=== PATIENT | female | born 1970 | race African-American/Black ===

== ENCOUNTER 2019-03-14 21:10 | Emergency (ER) | payer MEDICAID ==
[~2019-03-14] VITALS: Ht 162.6 cm; Wt 57.0 kg
[~2019-03-14 21:10] MED LIST: ACET-2178; CEPH500C2 PO; FURO-152
[2019-03-15 00:08] LABS: CHLORIDE 114 mEq/L (98-107)
[2019-03-15 00:12] LABS: BASOPHILS % 0.5 % (0.0-2.0); ETHANOL BLOOD < 10 mg/dL; HEMATOCRIT. 29.9 % (36.0-48.0); LYMPHOCYTES % 18.4 % (20.0-50.0); MEAN CORPUSCULAR HEMOGLOBIN 31.2 pg (28.0-32.0); MEAN CORPUSCULAR VOLUME 93.4 fL (81.0-99.0); MEAN PLATELET VOLUME 9.5 fl (7.4-10.4); MONOCYTES % 13.2 % (2.0-8.0); NEUTROPHILS % 63.9 % (40.0-76.0); PLATELET 160 x1000/uL (130-400); RED BLOOD CELL COUNT 3.21 mill/uL (4.2-5.4); RED CELL DISTRIBUTION WIDTH 14.4 % (11.6-14.6)
[2019-03-15] MEDS ORDERED: ACETAMINOPHEN 650MG/20.3ML UDC PO ONE (01:00)
[2019-03-16 10:19] VITALS: BP 123/95
== END 2019-03-16 12:01 | disposition home or self-care (01) ==
LOC: ER 21:10 → EDBEDREQ 03-16 11:23 → ER 03-16 12:01 → CANBEDREQ 03-16 12:16
DX: F99 Mental disorder, not otherwise specified (principal); G93.1 Anoxic brain damage, not elsewhere classified; I25.2 Old myocardial infarction; I50.9 Heart failure, unspecified; J45.909 Unspecified asthma, uncomplicated; Z86.74 Personal history of sudden cardiac arrest
CPT/HCPCS: 36415; 80320; 81025; 83880; 84484; 93005; 99284; G0480

== ENCOUNTER 2019-03-20 11:28 | Inpatient (IN) | payer MEDICAID ==
[~2019-03-20] VITALS: Ht 167.6 cm; Wt 45.4 kg
[2019-03-20 12:36] LABS: BASOPHILS % 0.8 % (0.0-2.0); EOSINOPHILS % 4.5 % (0.0-5.0); HEMATOCRIT. 34.6 % (36.0-48.0); HEMOGLOBIN. 11.7 g/dL (12.0-16.0); LYMPHOCYTES % 20.4 % (20.0-50.0); MEAN CORPUSCULAR HEMOGLOBIN 31.6 pg (28.0-32.0); MEAN CORPUSCULAR VOLUME 93.2 fL (81.0-99.0); MEAN PLATELET VOLUME 9.6 fl (7.4-10.4); NEUTROPHILS % 65.3 % (40.0-76.0); PLATELET 198 x1000/uL (130-400); RED BLOOD CELL COUNT 3.71 mill/uL (4.2-5.4); RED CELL DISTRIBUTION WIDTH 14.4 % (11.6-14.6)
[2019-03-20 12:41] LABS: CHLORIDE 107 mEq/L (98-107)
[2019-03-20 12:45] LABS: ETHANOL BLOOD < 10 mg/dL
[2019-03-20 12:51] LABS: INR 1.2; PARTIAL THROMBOPLASTIN TIME 27.3 sec (23.4-31.0); PROTHROMBIN TIME 12.7 sec (9.6-11.0)
[2019-03-20 14:15] LABS: CLARITY URINE CLOUDY (CLEAR); COLOR URINE YELLOW (YELLOW); KETONES URINE NEGATIVE (NEGATIVE); LEUKOCYTE ESTERASE URINE 2+ (NEGATIVE); NITRITE URINE NEGATIVE (NEGATIVE); OCCULT BLOOD URINE TRACE (NEGATIVE); PROTEIN URINE TRACE (NEGATIVE); SPECIFIC GRAVITY URINE 1.022 (1.005-1.030)
[2019-03-20] MEDS ORDERED: ONDANSETRON HCL 4MG/2ML INJ IV PRN (14:30)
[2019-03-20] MEDS ORDERED: GUAIFENESIN 200MG/10ML SUGAR FREE UDC PO PRN (14:30)
[2019-03-20] MEDS ORDERED: IPRATROPIUM/ALBUTEROL 0.5-3(2.5)MG/3ML NEB INH PRN (14:30)
[2019-03-20] MEDS ORDERED: CLONIDINE 0.1MG TABLET PO PRN (14:30)
[2019-03-20] MEDS ORDERED: DOCUSATE SODIUM 100MG CAPSULE PO PRN (14:30)
[2019-03-20] MEDS ORDERED: ACETAMINOPHEN 325MG TABLET PO PRN (14:30)
[2019-03-20] MEDS ORDERED: MAGNESIUM/ALUMINUM HYDROXIDE/SIMETHICONE 30ML UDC PO PRN (14:30)
[2019-03-20 14:41] LABS: *AMPHETAMINES SCREEN URINE NEGATIVE (NEGATIVE); *BARBITURATES SCREEN URINE NEGATIVE (NEGATIVE); *BENZODIAZEPINES SCREEN URINE NEGATIVE (NEGATIVE); *COCAINE SCREEN URINE NEGATIVE (NEGATIVE); METHADONE URINE SCREEN NEGATIVE (NEGATIVE); OPIATES URINE SCREEN NEGATIVE (NEGATIVE)
[2019-03-20 14:42] LABS: CANNABINOID URINE SCREEN NEGATIVE (NEGATIVE); PHENCYCLIDINE URINE SCREEN NEGATIVE (NEGATIVE)
[2019-03-20 15:07] LABS: PHOSPHORUS 3.9 mg/dL (2.5-4.9)
[2019-03-20] MEDS ORDERED: CEFTRIAXONE 1 G PREMIX 50 ML IV ONE (15:45)
[2019-03-20 16:45] VITALS: BP 148/80
[2019-03-20 17:00] VITALS: BP 148/80
[2019-03-20] MEDS ORDERED: FOLI-43 MT (17:12)
[2019-03-20] MEDS ORDERED: MULT-1116 MT (17:12)
[2019-03-20] MEDS ORDERED: PHEN50TA2 PO (17:12)
[2019-03-20] MEDS ORDERED: VITA1CAP MT (17:12)
[2019-03-20] MEDS ORDERED: CARV3.1242 MT (17:12)
[2019-03-20] MEDS ORDERED: KEPPSOL MT (17:12)
[2019-03-20] MEDS ORDERED: FERR324T4 MT (17:12)
[2019-03-20] MEDS ORDERED: ATOR40TA70 MT (17:12)
[2019-03-20] MEDS: ENOXAPARIN 40MG/0.4ML SYR SUBCUT SCH (19:37)
[2019-03-20 20:00] VITALS: BP_SYST 126; BP_SYST 99; BP_DIAS 60; BP_DIAS 82
[2019-03-21] VITALS: BP 135/81
[2019-03-21 00:15] LABS: CREATINE KINASE 60 IU/L (26-192); CREATINE KINASE MB FRACTION < 1.0 ng/mL (0.5-3.6)
[2019-03-21 04:00] VITALS: BP 131/81
[2019-03-21 06:36] LABS: BASOPHILS % 0.5 % (0.0-2.0); EOSINOPHILS % 4.7 % (0.0-5.0); HEMATOCRIT. 32.2 % (36.0-48.0); HEMOGLOBIN. 10.7 g/dL (12.0-16.0); LYMPHOCYTES % 21.8 % (20.0-50.0); MEAN CORPUSCULAR HEMOGLOBIN 30.6 pg (28.0-32.0); MEAN PLATELET VOLUME 10.3 fl (7.4-10.4); MONOCYTES % 10.6 % (2.0-8.0); NEUTROPHILS % 62.4 % (40.0-76.0); PLATELET 187 x1000/uL (130-400); RED BLOOD CELL COUNT 3.51 mill/uL (4.2-5.4); RED CELL DISTRIBUTION WIDTH 14.2 % (11.6-14.6)
[2019-03-21 06:42] LABS: CHLORIDE 105 mEq/L (98-107)
[2019-03-21 06:56] LABS: LDL CHOLESTEROL 76 mg/dL (5-100)
[2019-03-21 06:58] LABS: CREATINE KINASE 79 IU/L (26-192)
[2019-03-21 06:59] LABS: HDL CHOLESTEROL 47 mg/dL (40-59)
[2019-03-21 07:02] LABS: CREATINE KINASE MB FRACTION < 1.0 ng/mL (0.5-3.6)
[2019-03-21 08:00] VITALS: BP 131/83
[2019-03-21 12:00] VITALS: BP 134/89
[2019-03-21 16:00] VITALS: BP 132/84
[2019-03-21] MEDS ORDERED: CEFTRIAXONE 1 G PREMIX 50 ML IV SCH (16:00)
[2019-03-21 16:21] LABS: TOTAL IRON BINDING CAPACITY 363 ug/dL (250-450)
[2019-03-21] MEDS ORDERED: LEVE1000 PO (16:29)
[2019-03-21 16:39] LABS: FOLIC ACID (FOLATE) SERUM > 20.00 ng/mL (>5.38)
[2019-03-21 16:40] LABS: VITAMIN B12 SERUM 565 pg/mL (211-911)
[2019-03-21] MEDS ORDERED: LEVETIRACETAM 500MG/5ML CUP PO SCH (17:00)
[2019-03-21] MEDS: LEVETIRACETAM 500MG/5ML CUP PO SCH (17:36)
[2019-03-21] MEDS: ENOXAPARIN 40MG/0.4ML SYR SUBCUT SCH (18:21)
[2019-03-21] MEDS: CEFTRIAXONE 1 G PREMIX 50 ML IV SCH (18:21)
[2019-03-21 20:00] VITALS: BP 119/80
[2019-03-21] MEDS: DIPHENHYDRAMINE 50MG/ML VIAL IV PRN (23:43)
[2019-03-22] VITALS: BP 127/87
[2019-03-22 04:00] VITALS: BP 126/82
[2019-03-22 08:00] VITALS: BP 132/97
[2019-03-22] MEDS: LEVETIRACETAM 500MG/5ML CUP PO SCH ×2 (08:57→22:27)
[2019-03-22 12:00] VITALS: BP 108/82
[2019-03-22] MEDS: LACTULOSE 20G/30ML UDC PO SCH ×2 (13:56→22:27)
[2019-03-22 16:00] VITALS: BP 114/77
[2019-03-22] MEDS: CEFTRIAXONE 1 G PREMIX 50 ML IV SCH (17:28)
[2019-03-22] MEDS: ENOXAPARIN 40MG/0.4ML SYR SUBCUT SCH (17:28)
[2019-03-22] MEDS ORDERED: HALOPERIDOL LACTATE 5MG/ML VIAL IM PRN (18:45)
[2019-03-22 20:00] VITALS: BP 116/83
[2019-03-23] VITALS: BP 104/79
[2019-03-23 04:00] VITALS: BP 115/83
[2019-03-23] MEDS: LACTULOSE 20G/30ML UDC PO SCH ×3 (05:35→21:23)
[2019-03-23 08:00] VITALS: BP 114/82
[2019-03-23 09:28] LABS: BASOPHILS % 0.8 % (0.0-2.0); EOSINOPHILS % 5.3 % (0.0-5.0); HEMATOCRIT. 34.3 % (36.0-48.0); HEMOGLOBIN. 11.4 g/dL (12.0-16.0); LYMPHOCYTES % 18.8 % (20.0-50.0); MEAN CORPUSCULAR HEMOGLOBIN 30.2 pg (28.0-32.0); MEAN CORPUSCULAR VOLUME 91.1 fL (81.0-99.0); MEAN PLATELET VOLUME 9.2 fl (7.4-10.4); MONOCYTES % 10.5 % (2.0-8.0); NEUTROPHILS % 64.6 % (40.0-76.0); PLATELET 202 x1000/uL (130-400); RED BLOOD CELL COUNT 3.77 mill/uL (4.2-5.4); RED CELL DISTRIBUTION WIDTH 14.2 % (11.6-14.6)
[2019-03-23] MEDS: LEVETIRACETAM 500MG/5ML CUP PO SCH ×2 (09:30→21:23)
[2019-03-23 10:09] LABS: CHLORIDE 107 mEq/L (98-107)
[2019-03-23 12:00] VITALS: BP 102/68
[2019-03-23 16:00] VITALS: BP 139/79
[2019-03-23] MEDS: ENOXAPARIN 40MG/0.4ML SYR SUBCUT SCH (18:45)
[2019-03-23] MEDS: CEFTRIAXONE 1 G PREMIX 50 ML IV SCH (18:47)
[2019-03-23 20:00] VITALS: BP 125/89
[2019-03-24] VITALS: BP 123/75
[2019-03-24 04:00] VITALS: BP 151/88
[2019-03-24] MEDS: LACTULOSE 20G/30ML UDC PO SCH ×3 (06:01→22:00)
[2019-03-24 07:21] LABS: BASOPHILS % 0.4 % (0.0-2.0); EOSINOPHILS % 1.2 % (0.0-5.0); HEMATOCRIT. 34.8 % (36.0-48.0); HEMOGLOBIN. 11.7 g/dL (12.0-16.0); LYMPHOCYTES % 11.9 % (20.0-50.0); MEAN CORPUSCULAR HEMOGLOBIN 30.8 pg (28.0-32.0); MEAN CORPUSCULAR VOLUME 91.4 fL (81.0-99.0); MEAN PLATELET VOLUME 9.7 fl (7.4-10.4); MONOCYTES % 6.7 % (2.0-8.0); NEUTROPHILS % 79.8 % (40.0-76.0); PLATELET 210 x1000/uL (130-400); RED CELL DISTRIBUTION WIDTH 14.2 % (11.6-14.6)
[2019-03-24 08:00] VITALS: BP 124/77
[2019-03-24] MEDS: LEVETIRACETAM 500MG/5ML CUP PO SCH ×2 (08:40→22:00)
[2019-03-24 08:44] LABS: CHLORIDE 106 mEq/L (98-107)
[2019-03-24 12:00] VITALS: BP 125/95
[2019-03-24 16:00] VITALS: BP_SYST 106; BP_SYST 126; BP_SYST 132; BP_DIAS 71; BP_DIAS 87; BP_DIAS 90
[2019-03-24] MEDS: ENOXAPARIN 40MG/0.4ML SYR SUBCUT SCH (19:09)
[2019-03-24 20:00] VITALS: BP 120/79
[2019-03-24] MEDS: CEFTRIAXONE 1 G PREMIX 50 ML IV SCH (20:40)
[2019-03-25] VITALS: BP 132/78
[2019-03-25 04:00] VITALS: BP 126/51
[2019-03-25] MEDS: LACTULOSE 20G/30ML UDC PO SCH (06:00)
[2019-03-25 07:17] LABS: BASOPHILS % 0.5 % (0.0-2.0); EOSINOPHILS % 2.8 % (0.0-5.0); HEMATOCRIT. 35.2 % (36.0-48.0); HEMOGLOBIN. 11.7 g/dL (12.0-16.0); LYMPHOCYTES % 19.2 % (20.0-50.0); MEAN CORPUSCULAR HEMOGLOBIN 30.5 pg (28.0-32.0); MEAN CORPUSCULAR VOLUME 91.6 fL (81.0-99.0); MEAN PLATELET VOLUME 10.2 fl (7.4-10.4); MONOCYTES % 11.4 % (2.0-8.0); NEUTROPHILS % 66.1 % (40.0-76.0); PLATELET 211 x1000/uL (130-400); RED BLOOD CELL COUNT 3.85 mill/uL (4.2-5.4); RED CELL DISTRIBUTION WIDTH 14.1 % (11.6-14.6)
[2019-03-25 07:37] LABS: CHLORIDE 108 mEq/L (98-107)
[2019-03-25 08:00] VITALS: BP 115/79
[2019-03-25] MEDS: LEVETIRACETAM 500MG/5ML CUP PO SCH ×2 (08:53→22:00)
[2019-03-25 12:00] VITALS: BP 116/68
[2019-03-25 15:26] LABS: BG BASE EXCESS -0.6 mmol/L (-2.0-2.0); BG CARBOXYHEMOGLOBIN 0.1 % (0.5-1.5); BG DEOXYHEMOGLOBIN 4.1 % (0.0-5.0); BG FRACTION INSPIRED OXYGEN 21; BG HCO3 ACT 23.9 mmol/L (22.0-26.0); BG METHEMOGLOBIN 0.4 % (0.0-1.5); BG OXYGEN SATURATION 95.9 % (92.0-98.5); BG OXYHEMOGLOBIN 95.4 % (94.0-97.0); BG PCO2 38.8 mmHg (35.0-45.0); BG PH 7.407 (7.350-7.450); BG PO2 85.7 mmHg (75.0-100.0); BG SAMPLE SITE RIGHT BRACHIAL; BG TOTAL HEMOGLOBIN 11.6 g/dL (12.0-18.0); BG VENT MODE ROOM AIR
[2019-03-25 16:00] VITALS: BP 117/78
[2019-03-25] MEDS: CEFTRIAXONE 1 G PREMIX 50 ML IV SCH (18:34)
[2019-03-25] MEDS: ENOXAPARIN 40MG/0.4ML SYR SUBCUT SCH (18:40)
[2019-03-25 20:00] VITALS: BP 112/72
[2019-03-26 01:56] VITALS: BP 117/81
[2019-03-26 04:00] VITALS: BP 127/85
[2019-03-26 06:21] LABS: BASOPHILS % 0.3 % (0.0-2.0); EOSINOPHILS % 4.4 % (0.0-5.0); HEMATOCRIT. 34.1 % (36.0-48.0); HEMOGLOBIN. 11.3 g/dL (12.0-16.0); LYMPHOCYTES % 20.1 % (20.0-50.0); MEAN CORPUSCULAR HEMOGLOBIN 30.4 pg (28.0-32.0); MEAN CORPUSCULAR VOLUME 91.5 fL (81.0-99.0); MEAN PLATELET VOLUME 10.4 fl (7.4-10.4); MONOCYTES % 11.2 % (2.0-8.0); PLATELET 223 x1000/uL (130-400); RED BLOOD CELL COUNT 3.73 mill/uL (4.2-5.4); RED CELL DISTRIBUTION WIDTH 14.2 % (11.6-14.6)
[2019-03-26 06:31] LABS: CHLORIDE 108 mEq/L (98-107)
[2019-03-26 08:00] VITALS: BP 122/87
[2019-03-26] MEDS: LEVETIRACETAM 500MG/5ML CUP PO SCH ×2 (08:48→21:40)
[2019-03-26] MEDS: METOPROLOL TARTRATE 25MG TABLET PO SCH ×2 (10:07→21:00)
[2019-03-26 12:00] VITALS: BP 113/79
[2019-03-26 16:00] VITALS: BP 103/70
[2019-03-26] MEDS: ENOXAPARIN 40MG/0.4ML SYR SUBCUT SCH (18:34)
[2019-03-26] MEDS: CEFTRIAXONE 1 G PREMIX 50 ML IV SCH (18:34)
[2019-03-26 20:00] VITALS: BP 101/68
[2019-03-27] VITALS: BP 108/69
[2019-03-27 04:00] VITALS: BP 128/94
[2019-03-27 08:35] VITALS: BP 117/77
[2019-03-27] MEDS: LEVETIRACETAM 500MG/5ML CUP PO SCH ×2 (09:09→20:42)
[2019-03-27] MEDS: METOPROLOL TARTRATE 25MG TABLET PO SCH ×2 (09:09→21:00)
[2019-03-27 12:00] VITALS: BP 107/72
[2019-03-27 16:00] VITALS: BP 103/58
[2019-03-27] MEDS: CEFTRIAXONE 1 G PREMIX 50 ML IV SCH (18:19)
[2019-03-27] MEDS: ENOXAPARIN 40MG/0.4ML SYR SUBCUT SCH (18:20)
[2019-03-27 20:00] VITALS: BP 100/67
[2019-03-27] MEDS: DIPHENHYDRAMINE 50MG/ML VIAL IV PRN (21:14)
[2019-03-28] VITALS: BP 120/82
[2019-03-28 04:00] VITALS: BP 110/77
[2019-03-28] MEDS: DIPHENHYDRAMINE 50MG/ML VIAL IV PRN (05:12)
[2019-03-28 06:59] LABS: BASOPHILS % 0.5 % (0.0-2.0); HEMATOCRIT. 32.9 % (36.0-48.0); HEMOGLOBIN. 10.9 g/dL (12.0-16.0); LYMPHOCYTES % 25.5 % (20.0-50.0); MEAN CORPUSCULAR HEMOGLOBIN 30.3 pg (28.0-32.0); MEAN CORPUSCULAR VOLUME 91.6 fL (81.0-99.0); MEAN PLATELET VOLUME 10.2 fl (7.4-10.4); MONOCYTES % 13.8 % (2.0-8.0); NEUTROPHILS % 53.2 % (40.0-76.0); PLATELET 229 x1000/uL (130-400); RED BLOOD CELL COUNT 3.59 mill/uL (4.2-5.4); RED CELL DISTRIBUTION WIDTH 13.9 % (11.6-14.6)
[2019-03-28 07:10] LABS: CHLORIDE 107 mEq/L (98-107)
[2019-03-28 08:00] VITALS: BP 118/67
[2019-03-28] MEDS: LEVETIRACETAM 500MG/5ML CUP PO SCH ×2 (08:59→21:59)
[2019-03-28] MEDS: METOPROLOL TARTRATE 25MG TABLET PO SCH ×2 (08:59→21:59)
[2019-03-28 12:00] VITALS: BP 117/76
[2019-03-28 16:00] VITALS: BP 115/74
[2019-03-28] MEDS: ENOXAPARIN 40MG/0.4ML SYR SUBCUT SCH (17:44)
[2019-03-28] MEDS: CEFTRIAXONE 1 G PREMIX 50 ML IV SCH (17:45)
[2019-03-28 20:00] VITALS: BP_SYST 132; BP_DIAS 79; BP_DIAS 81
[2019-03-29] VITALS: BP 132/78
[2019-03-29 04:00] VITALS: BP 132/81
[2019-03-29 05:24] LABS: HEMATOCRIT. 36.9 % (36.0-48.0); HEMOGLOBIN. 11.9 g/dL (12.0-16.0); MEAN CORPUSCULAR VOLUME 92.6 fL (81.0-99.0); MEAN PLATELET VOLUME 9.4 fl (7.4-10.4); PLATELET 254 x1000/uL (130-400); RED BLOOD CELL COUNT 3.98 mill/uL (4.2-5.4); RED CELL DISTRIBUTION WIDTH 14.2 % (11.6-14.6)
[2019-03-29 05:56] LABS: CHLORIDE 109 mEq/L (98-107)
[2019-03-29 08:00] VITALS: BP 119/86
[2019-03-29] MEDS: METOPROLOL TARTRATE 25MG TABLET PO SCH ×2 (08:24→20:37)
[2019-03-29] MEDS: LEVETIRACETAM 500MG/5ML CUP PO SCH ×2 (08:24→20:37)
[2019-03-29 11:34] LABS: PLATELET ESTIMATE NORMAL
[2019-03-29 12:00] VITALS: BP 113/86
[2019-03-29] MEDS ORDERED: SODIUM BICARBONATE 4% (2.4MEQ) 5ML VIAL IV ONE (14:17)
[2019-03-29] MEDS ORDERED: LIDOCAINE HCL 1% 20ML VIAL (Pyxis) INJ ONE (14:17)
[2019-03-29 15:08] LABS: ANA IFA Negative (.)
[2019-03-29] MEDS: DIPHENHYDRAMINE 50MG/ML VIAL IV PRN (15:23)
[2019-03-29 15:31] LABS: GLUCOSE CSF 62 mg/dL (41-75)
[2019-03-29 16:00] VITALS: BP 116/79
[2019-03-29] MEDS: ENOXAPARIN 40MG/0.4ML SYR SUBCUT SCH (18:00)
[2019-03-29 20:00] VITALS: BP 119/81
[2019-03-30] VITALS: BP 139/83
[2019-03-30 04:00] VITALS: BP 131/86
[2019-03-30 08:00] VITALS: BP 110/74
[2019-03-30] MEDS: LEVETIRACETAM 500MG/5ML CUP PO SCH ×2 (09:15→20:40)
[2019-03-30] MEDS: METOPROLOL TARTRATE 25MG TABLET PO SCH ×2 (09:15→20:39)
[2019-03-30 12:00] VITALS: BP 119/83
[2019-03-30] MEDS: RISPERIDONE 1MG TABLET PO SCH ×2 (13:59→18:25)
[2019-03-30 16:00] VITALS: BP 100/66
[2019-03-30] MEDS: ENOXAPARIN 40MG/0.4ML SYR SUBCUT SCH (18:26)
[2019-03-30 20:00] VITALS: BP 126/77
[2019-03-31] VITALS (7 sets, daily range): BP systolic 97–128; BP diastolic 62–80
[2019-03-31] MEDS: METOPROLOL TARTRATE 25MG TABLET PO SCH ×2 (08:35→20:54)
[2019-03-31] MEDS: LEVETIRACETAM 500MG/5ML CUP PO SCH ×2 (08:35→20:54)
[2019-03-31] MEDS: RISPERIDONE 1MG TABLET PO SCH ×2 (08:41→17:05)
[2019-03-31] MEDS: ENOXAPARIN 30MG/0.3ML SYR SUBCUT SCH (14:55)
[2019-03-31] MEDS: DIPHENHYDRAMINE 50MG/ML VIAL IV PRN (20:54)
[2019-04-01] VITALS: BP 131/88
[2019-04-01 04:00] VITALS: BP 131/84
[2019-04-01 08:00] VITALS: BP 122/79
[2019-04-01 09:06] LABS: BASOPHILS % 0.5 % (0.0-2.0); EOSINOPHILS % 4.5 % (0.0-5.0); HEMATOCRIT. 34.9 % (36.0-48.0); HEMOGLOBIN. 11.4 g/dL (12.0-16.0); LYMPHOCYTES % 25.9 % (20.0-50.0); MEAN CORPUSCULAR HEMOGLOBIN 29.8 pg (28.0-32.0); MEAN CORPUSCULAR VOLUME 91.4 fL (81.0-99.0); MEAN PLATELET VOLUME 9.5 fl (7.4-10.4); MONOCYTES % 13.9 % (2.0-8.0); NEUTROPHILS % 55.2 % (40.0-76.0); PLATELET 255 x1000/uL (130-400); RED BLOOD CELL COUNT 3.82 mill/uL (4.2-5.4); RED CELL DISTRIBUTION WIDTH 14.1 % (11.6-14.6)
[2019-04-01 09:22] LABS: CHLORIDE 106 mEq/L (98-107)
[2019-04-01] MEDS: LEVETIRACETAM 500MG/5ML CUP PO SCH ×2 (09:30→19:46)
[2019-04-01] MEDS: RISPERIDONE 1MG TABLET PO SCH ×2 (09:31→17:13)
[2019-04-01] MEDS: METOPROLOL TARTRATE 25MG TABLET PO SCH ×2 (09:31→19:46)
[2019-04-01 12:00] VITALS: BP 103/71
[2019-04-01] MEDS: ENOXAPARIN 30MG/0.3ML SYR SUBCUT SCH (13:08)
[2019-04-01 16:00] VITALS: BP 98/66
[2019-04-01 20:00] VITALS: BP 123/75
[2019-04-02] VITALS: BP 101/60
[2019-04-02 04:00] VITALS: BP 104/74
[2019-04-02 08:00] VITALS: BP 121/79
[2019-04-02] MEDS: RISPERIDONE 1MG TABLET PO SCH (08:37)
[2019-04-02] MEDS: METOPROLOL TARTRATE 25MG TABLET PO SCH ×2 (08:37→21:00)
[2019-04-02] MEDS: LEVETIRACETAM 500MG/5ML CUP PO SCH ×2 (08:38→21:09)
[2019-04-02 12:00] VITALS: BP 108/65
[2019-04-02] MEDS: ENOXAPARIN 30MG/0.3ML SYR SUBCUT SCH (15:04)
[2019-04-02 16:00] VITALS: BP 130/82
[2019-04-02] MEDS: RISPERIDONE 1MG TABLET PO PRN (17:59)
[2019-04-02 20:00] VITALS: BP 117/79
[2019-04-03] VITALS: BP 107/57
[2019-04-03 04:00] VITALS: BP 118/73
[2019-04-03 06:26] LABS: CHLORIDE 107 mEq/L (98-107)
[2019-04-03 06:34] LABS: BASOPHILS % 0.4 % (0.0-2.0); EOSINOPHILS % 3.2 % (0.0-5.0); HEMATOCRIT. 31.5 % (36.0-48.0); HEMOGLOBIN. 10.5 g/dL (12.0-16.0); LYMPHOCYTES % 23.1 % (20.0-50.0); MEAN CORPUSCULAR HEMOGLOBIN 30.1 pg (28.0-32.0); MEAN CORPUSCULAR VOLUME 90.7 fL (81.0-99.0); MEAN PLATELET VOLUME 10.5 fl (7.4-10.4); MONOCYTES % 10.6 % (2.0-8.0); NEUTROPHILS % 62.7 % (40.0-76.0); PLATELET 185 x1000/uL (130-400); RED BLOOD CELL COUNT 3.47 mill/uL (4.2-5.4); RED CELL DISTRIBUTION WIDTH 14.4 % (11.6-14.6)
[2019-04-03 07:59] VITALS: BP 132/83
[2019-04-03] MEDS: LEVETIRACETAM 500MG/5ML CUP PO SCH ×2 (08:59→21:11)
[2019-04-03] MEDS: METOPROLOL TARTRATE 25MG TABLET PO SCH ×2 (08:59→20:59)
[2019-04-03 11:45] VITALS: BP 112/76
[2019-04-03] MEDS: ENOXAPARIN 30MG/0.3ML SYR SUBCUT SCH (14:29)
[2019-04-03 16:00] VITALS: BP 100/68
[2019-04-03 20:00] VITALS: BP 130/86
[2019-04-04] VITALS: BP 114/79
[2019-04-04 04:00] VITALS: BP 123/66
[2019-04-04 08:00] VITALS: BP 116/77
[2019-04-04] MEDS: METOPROLOL TARTRATE 25MG TABLET PO SCH ×2 (09:00→21:19)
[2019-04-04] MEDS: LEVETIRACETAM 500MG/5ML CUP PO SCH ×2 (09:00→21:19)
[2019-04-04 12:00] VITALS: BP 106/65
[2019-04-04] MEDS: ENOXAPARIN 30MG/0.3ML SYR SUBCUT SCH (14:53)
[2019-04-04 16:00] VITALS: BP 109/64
[2019-04-04 20:00] VITALS: BP 112/64
[2019-04-04] MEDS: RISPERIDONE 1MG TABLET PO PRN (21:19)
[2019-04-05 08:00] VITALS: BP 113/74
[2019-04-05] MEDS: METOPROLOL TARTRATE 25MG TABLET PO SCH (09:13)
[2019-04-05] MEDS: LEVETIRACETAM 500MG/5ML CUP PO SCH (09:13)
[2019-04-05 12:00] VITALS: BP 113/76
[2019-04-05] MEDS: ENOXAPARIN 30MG/0.3ML SYR SUBCUT SCH (14:02)
[2019-04-05 15:49] VITALS: BP 104/65
[2019-04-05 16:31] VITALS: BP 104/65
== END 2019-04-05 18:37 | DRG 59 ==
LOC: ER 11:28 → EDBEDREQ 12:26 → 5WST 14:15 → EDBEDREQ 14:29 → ENRESERV 15:21 → CANRESERV 15:21 → ENRESERV 15:41 → 5WST 17:37 → 8WST 03-27 20:12
PROVIDERS: ADMIT Internal Medicine; ATTEND Internal Medicine
PROC: 009U3ZX Drainage of Spinal Canal, Percutaneous Approach, Diagnostic (ICD-10-PCS; principal; 2019-03-29)
PROC: B01B1ZZ Fluoroscopy of Spinal Cord using Low Osmolar Contrast (ICD-10-PCS; 2019-03-29)
DX: G93.1 Anoxic brain damage, not elsewhere classified (principal); E72.20 Disorder of urea cycle metabolism, unspecified; I50.9 Heart failure, unspecified; I11.0 Hypertensive heart disease with heart failure; Z86.74 Personal history of sudden cardiac arrest; Z78.1 Physical restraint status; N39.0 Urinary tract infection, site not specified; G92 Toxic encephalopathy; G40.909 Epilepsy, unspecified, not intractable, without status epilepticus; D64.9 Anemia, unspecified; I25.10 Atherosclerotic heart disease of native coronary artery without angina pectoris; E78.00 Pure hypercholesterolemia, unspecified; E78.5 Hyperlipidemia, unspecified; R00.0 Tachycardia, unspecified; Z82.49 Family history of ischemic heart disease and other diseases of the circulatory system; Z79.899 Other long term (current) drug therapy
CPT/HCPCS: 36415; 36600; 62270; 70551; 71045; 76700; 77003; 78582; 80048; 80061; 80305; 80307; 80320; 80329; 82140; 82375; 82550; 82553; 82607; 82728; 82746; 82805; 82945; 82962; 83540; 83550; 83735; 83880; 84100; 84145; 84157; 84443; 84484; 85379; 85651; 86140; 86256; 86592; 86635; 87070; 87899; 93005; 93306; 93970; 96374; 97116; 97162; 97166; 97530; 97535; 99285; A9558; C1893; J0696; J1200; J1630; J1650; J3490; J7050; G0480

== ENCOUNTER 2019-06-18 13:04 | Emergency (ER) | payer MEDICAID ==
[~2019-06-18] VITALS: Ht 162.6 cm; Wt 50.0 kg
[~2019-06-18 13:04] MED LIST changes: -ACET-2178; +ATOR40TA70 MT; +CARV3.1242 MT; -CEPH500C2 PO; +FERR324T4 MT; +FOLI-43 MT; -FURO-152; +LEVE1000 PO; +MULT-1116 MT; +PHEN50TA2 PO; +VITA1CAP MT
[2019-06-18 15:48] LABS: BASOPHILS % 0.3 % (0.0-2.0); CHLORIDE 108 mEq/L (98-107); EOSINOPHILS % 2.5 % (0.0-5.0); HEMATOCRIT. 34.6 % (36.0-48.0); HEMOGLOBIN. 11.5 g/dL (12.0-16.0); LYMPHOCYTES % 21.4 % (20.0-50.0); MEAN CORPUSCULAR HEMOGLOBIN 28.7 pg (28.0-32.0); MEAN CORPUSCULAR VOLUME 86.4 fL (81.0-99.0); MEAN PLATELET VOLUME 9.3 fl (7.4-10.4); NEUTROPHILS % 68.8 % (40.0-76.0); PLATELET 215 x1000/uL (130-400); RED CELL DISTRIBUTION WIDTH 13.6 % (11.6-14.6)
[2019-06-18 15:51] LABS: ETHANOL BLOOD < 10 mg/dL
[2019-06-18 16:17] LABS: CLARITY URINE CLEAR (CLEAR); COLOR URINE YELLOW (YELLOW); KETONES URINE TRACE (NEGATIVE); LEUKOCYTE ESTERASE URINE 1+ (NEGATIVE); NITRITE URINE NEGATIVE (NEGATIVE); OCCULT BLOOD URINE NEGATIVE (NEGATIVE); PH URINE 6.5 (4.5-8.0); PROTEIN URINE NEGATIVE (NEGATIVE); SPECIFIC GRAVITY URINE 1.025 (1.005-1.030); UROBILINOGEN URINE 0.2 E.U./dL (0.2-1.0)
[2019-06-18 16:27] LABS: *AMPHETAMINES SCREEN URINE NEGATIVE (NEGATIVE); *BARBITURATES SCREEN URINE NEGATIVE (NEGATIVE); *BENZODIAZEPINES SCREEN URINE NEGATIVE (NEGATIVE)
[2019-06-18 16:28] LABS: *COCAINE SCREEN URINE NEGATIVE (NEGATIVE); CANNABINOID URINE SCREEN NEGATIVE (NEGATIVE); METHADONE URINE SCREEN NEGATIVE (NEGATIVE); OPIATES URINE SCREEN NEGATIVE (NEGATIVE); PHENCYCLIDINE URINE SCREEN NEGATIVE (NEGATIVE)
[2019-06-18 17:09] VITALS: BP 130/65
== END 2019-06-18 17:17 | disposition home or self-care (01) ==
LOC: ER 13:04
DX: F91.8 Other conduct disorders (principal); I25.10 Atherosclerotic heart disease of native coronary artery without angina pectoris; I50.9 Heart failure, unspecified; Z86.74 Personal history of sudden cardiac arrest
CPT/HCPCS: 36415; 80305; 80320; 81003; 99284; G0480

== ENCOUNTER 2019-07-24 17:25 | Emergency (ER) | payer MEDICAID ==
[~2019-07-24] VITALS: Ht 170.2 cm; Wt 59.0 kg
[2019-07-24 20:37] LABS: BASOPHILS % 0.3 % (0.0-2.0); EOSINOPHILS % 3.3 % (0.0-5.0); HEMATOCRIT. 33.7 % (36.0-48.0); HEMOGLOBIN. 10.9 g/dL (12.0-16.0); LYMPHOCYTES % 17.4 % (20.0-50.0); MEAN CORPUSCULAR HEMOGLOBIN 27.9 pg (28.0-32.0); MEAN CORPUSCULAR VOLUME 86.7 fL (81.0-99.0); MEAN PLATELET VOLUME 9.4 fl (7.4-10.4); MONOCYTES % 8.8 % (2.0-8.0); NEUTROPHILS % 70.2 % (40.0-76.0); PLATELET 181 x1000/uL (130-400); RED BLOOD CELL COUNT 3.89 mill/uL (4.2-5.4)
[2019-07-24 20:45] LABS: CHLORIDE 113 mEq/L (98-107)
[2019-07-24 20:48] LABS: ETHANOL BLOOD < 10 mg/dL
[2019-07-24 21:41] LABS: CLARITY URINE CLEAR (CLEAR); COLOR URINE YELLOW (YELLOW); KETONES URINE NEGATIVE (NEGATIVE); LEUKOCYTE ESTERASE URINE 1+ (NEGATIVE); NITRITE URINE NEGATIVE (NEGATIVE); OCCULT BLOOD URINE NEGATIVE (NEGATIVE); PROTEIN URINE 1+ (NEGATIVE); SPECIFIC GRAVITY URINE 1.024 (1.005-1.030)
[2019-07-24 21:58] LABS: *BARBITURATES SCREEN URINE NEGATIVE (NEGATIVE)
[2019-07-24 21:59] LABS: *AMPHETAMINES SCREEN URINE NEGATIVE (NEGATIVE); *BENZODIAZEPINES SCREEN URINE NEGATIVE (NEGATIVE); *COCAINE SCREEN URINE NEGATIVE (NEGATIVE); METHADONE URINE SCREEN NEGATIVE (NEGATIVE); OPIATES URINE SCREEN NEGATIVE (NEGATIVE); PHENCYCLIDINE URINE SCREEN NEGATIVE (NEGATIVE)
[2019-07-24 22:00] LABS: CANNABINOID URINE SCREEN NEGATIVE (NEGATIVE)
[2019-07-26 11:00] VITALS: BP 124/72
== END 2019-07-26 11:53 | disposition home or self-care (01) ==
LOC: ER 17:25
DX: F41.9 Anxiety disorder, unspecified (principal); I51.9 Heart disease, unspecified; I25.2 Old myocardial infarction; I46.9 Cardiac arrest, cause unspecified; Z79.899 Other long term (current) drug therapy
CPT/HCPCS: 36415; 80305; 80320; 81003; 93005; 99284; G0480

== ENCOUNTER 2019-09-24 16:10 | Emergency (ER) | payer MEDICAID ==
[~2019-09-24] VITALS: Ht 172.7 cm; Wt 54.7 kg
[2019-09-24 18:38] LABS: BASOPHILS % 0.7 % (0.0-2.0); HEMATOCRIT. 35.4 % (36.0-48.0); HEMOGLOBIN. 11.5 g/dL (12.0-16.0); LYMPHOCYTES % 17.7 % (20.0-50.0); MEAN CORPUSCULAR HEMOGLOBIN 28.4 pg (28.0-32.0); MEAN CORPUSCULAR VOLUME 87.1 fL (81.0-99.0); MEAN PLATELET VOLUME 9.7 fl (7.4-10.4); MONOCYTES % 8.2 % (2.0-8.0); NEUTROPHILS % 70.4 % (40.0-76.0); PLATELET 211 x1000/uL (130-400); RED BLOOD CELL COUNT 4.06 mill/uL (4.2-5.4); RED CELL DISTRIBUTION WIDTH 15.3 % (11.6-14.6)
[2019-09-24] MEDS ORDERED: SODIUM CHLORIDE 0.9% 1,000 ML IV ONE (18:41)
[2019-09-24 18:42] LABS: CHLORIDE 106 mEq/L (98-107)
[2019-09-24 18:47] LABS: ETHANOL BLOOD < 10 mg/dL
[2019-09-24] MEDS ORDERED: PHENYTOIN SODIUM 1,000 MG in SODIUM CHLORIDE 0.9% 100 ML IV ONE (20:15)
[2019-09-24 20:53] LABS: CLARITY URINE CLEAR (CLEAR); COLOR URINE YELLOW (YELLOW); KETONES URINE NEGATIVE (NEGATIVE); LEUKOCYTE ESTERASE URINE 3+ (NEGATIVE); NITRITE URINE NEGATIVE (NEGATIVE); OCCULT BLOOD URINE NEGATIVE (NEGATIVE); PROTEIN URINE NEGATIVE (NEGATIVE); UROBILINOGEN URINE 0.2 E.U./dL (0.2-1.0)
[2019-09-24 21:09] LABS: *AMPHETAMINES SCREEN URINE NEGATIVE (NEGATIVE); *BARBITURATES SCREEN URINE NEGATIVE (NEGATIVE); *BENZODIAZEPINES SCREEN URINE NEGATIVE (NEGATIVE); *COCAINE SCREEN URINE NEGATIVE (NEGATIVE); METHADONE URINE SCREEN NEGATIVE (NEGATIVE); OPIATES URINE SCREEN NEGATIVE (NEGATIVE)
[2019-09-24 21:10] LABS: CANNABINOID URINE SCREEN NEGATIVE (NEGATIVE); PHENCYCLIDINE URINE SCREEN NEGATIVE (NEGATIVE)
[2019-09-24] MEDS ORDERED: LEVETIRACETAM 500MG TABLET PO ONE (22:30)
[2019-09-25] MEDS ORDERED: LEVETIRACETAM 500MG TABLET PO SCH (09:00)
[2019-09-25 11:00] VITALS: BP 120/80
== END 2019-09-25 13:03 | disposition home or self-care (01) ==
LOC: ER 16:10
DX: R46.2 Strange and inexplicable behavior (principal); R56.9 Unspecified convulsions; R89.2 Abnormal level of other drugs, medicaments and biological substances in specimens from other organs, systems and tissues; I10 Essential (primary) hypertension; I25.2 Old myocardial infarction; Z79.899 Other long term (current) drug therapy
CPT/HCPCS: 36415; 70450; 71045; 80053; 80185; 80305; 80307; 80320; 80329; 81003; 83880; 84443; 84484; 85025; 93005; 96365; 99291; J1165; J7030; J7050; G0480